=== PATIENT | male | born 1975 | race Caucasian/White ===

== ENCOUNTER 2017-11-03 00:02 | Emergency (ER) | payer MEDICARE, MEDICAID ==
[2017-11-03 00:58] LABS: #Lymphocytes 1.3 thou/uL (1.20-3.40); #Monocytes 0.4 thou/uL (0.11-0.59); #Neutrophils 4.1 thou/uL (1.40-6.50); %Basophils 0.1 % (0.0-1.0); %Eosinophils 0.1 % (0.0-10.0); %Lymphocytes 22.9 % (21.0-51.0); %Monocytes 7.3 % (0.0-10.0); %Neutrophils 69.7 % (42.0-75.0); Hemoglobin 13.5 g/dL (14.0-18.0); Mean Corpuscular HGB CONC 32.5 g/dL (32.0-36.0); Mean Corpuscular Volume 83.2 fl (80.0-94.0); Mean Platelet Volume 7.4 fL (7.4-10.4); Platelet Count 204 thou/uL (130-400); RBC Distribution Width 11.8 % (11.5-14.5); Red Blood Cell (RBC) Count 4.99 mill/uL (4.70-6.10); White Blood Cell (WBC) Count 5.8 thou/uL (4.8-10.8)
[2017-11-03 01:02] LABS: INR-International Normal Ratio 1.7; Prothrombin Time 20.7 SEC (12.0-14.7)
[2017-11-03 01:20] LABS: ALT (SGPT) 19 U/L (8-55); AST (SGOT) 15 U/L (5-34); Albumin 3.9 g/dL (3.5-5.0); Alkaline Phosphatase 60 U/L (40-150); Anion Gap 13 mmol/L (10-20); BUN (Urea Nitrogen) 21 mg/dL (8.9-20.6); Bilirubin, Total 0.3 mg/dL (0.2-1.2); Calc. Creatinine Clearance 0 mL/min (70-130); Calcium 9.5 mg/dL (7.8-10.44); Carbon Dioxide 25 mmol/L (22-29); Chloride 104 mmol/L (98-107); Estimated GFR-MDRD Greater than 90; Globulin 2.8 g/dL (2.4-3.5); Glucose 117 mg/dL (70-105); Iron 67 ug/dL (65-175); Iron Binding Capacity, Total 223 mcg/dL (261-462); Potassium 4.4 mmol/L (3.5-5.1); Protein, Total 6.7 g/dL (6.0-8.3); Sodium 138 mmol/L (136-145)
[2017-11-03 04:24] LABS: #Lymphocytes 2.1 thou/uL (1.20-3.40); #Monocytes 0.7 thou/uL (0.11-0.59); %Basophils 0.5 % (0.0-1.0); %Eosinophils 0.1 % (0.0-10.0); %Lymphocytes 26.8 % (21.0-51.0); %Monocytes 9.1 % (0.0-10.0); %Neutrophils 63.5 % (42.0-75.0); Hemoglobin 13.8 g/dL (14.0-18.0); Mean Corpuscular HGB CONC 32.4 g/dL (32.0-36.0); Mean Corpuscular Hemoglobin 27.4 pg (27.0-31.0); Mean Corpuscular Volume 84.4 fl (80.0-94.0); Platelet Count 202 thou/uL (130-400); RBC Distribution Width 11.8 % (11.5-14.5); Red Blood Cell (RBC) Count 5.04 mill/uL (4.70-6.10); White Blood Cell (WBC) Count 7.9 thou/uL (4.8-10.8)
--- NOTE | 2017-11-03 07:53 | RAD ---
TWO VIEWS CHEST: Date: 11-03-17 Comparison: 09-08-12 History: Upper respiratory infection, hemoptysis. FINDINGS: There is a dual lead AICD inserted via left sided approach. There is stable prominence of the cardiac silhouette. There is no pneumothorax or pleural fluid and no focal consolidation or alveolar edema. IMPRESSION: No acute findings. POS: [facility]
--- NOTE | 2017-11-22 17:49 | EKG ---
Test Reason : Blood Pressure : / mmHG Vent. Rate : 080 BPM Atrial Rate : 182 BPM P-R Int : 000 ms QRS Dur : 148 ms QT Int : 418 ms P-R-T Axes : 000 -56 072 degrees QTc Int : 482 ms Electronic ventricular pacemaker Confirmed by DANY BENOIT D.O. ([id number]), staff editor VERONICA YADAV ([id number] on 11/22/2017 5:47:53 PM Referred By: Confirmed By:DANY BENOIT D.O.
== END 2017-11-03 04:47 | disposition home or self-care (01) ==
LOC: ERS 00:02
DX: K92.2 Gastrointestinal hemorrhage, unspecified (principal); I48.91 Unspecified atrial fibrillation; I50.9 Heart failure, unspecified; I25.2 Old myocardial infarction; E05.90 Thyrotoxicosis, unspecified without thyrotoxic crisis or storm; F32.9 Major depressive disorder, single episode, unspecified; Z86.73 Personal history of transient ischemic attack (TIA), and cerebral infarction without residual deficits; Z87.891 Personal history of nicotine dependence
CPT/HCPCS: 36415; 71046; 80053; 82274; 82728; 83540; 83550; 85025; 85610; 85730; 86850; 86900; 86901; 93005

== ENCOUNTER 2017-11-12 10:22 | Day surgery (SDC) | payer MEDICARE, MEDICAID ==
[2017-11-12] MEDS ORDERED: Ondansetron HCl/PF 4 MG/2 ML Vial ONE (12:30)
--- NOTE | 2017-11-12 13:54 | OP ---
PREOPERATIVE DIAGNOSES: 1. Gastrointestinal bleeding. 2. Mild anemia. PROCEDURE IN DETAIL: After informed consent was obtained, the patient was placed in the left lateral decubitus position. Anesthesia was administered per the Anesthesia Department. Forward-viewing end oscope was inserted into the esophagus under direct visualization with ease and passed to the second portion of the duodenum with ease. Second portion of the duodenum and duodenal bulb were normal. Ra ndom biopsies were taken from the second portion of the duodenum. The pylorus, antrum, body, fundus, and cardia were normal except for some mildly gastritis in the body of the stomach. Retroflexion in the stomach was normal. The esophagus was normal throughout. ASSESSMENT: 1. Mild nonerosive gastritis - status post biopsy. 2. Otherwise normal esophagogastroduodenoscopy. RECOMMENDATIONS: 1. Await histopathology. 2. Proceed with colonoscopy. DESCRIPTION OF PROCEDURE: After informed consent was obtained, the patient was placed in the left la teral decubitus position. Anesthesia was administered per the Anesthesia Department. Forward-viewin g colonoscope was inserted into the rectum after perianal inspection and rectal exam were normal. It was passed to the cecum. The cecum, ileocecal valve, and appendiceal orifice were normal. The term inal ileum was normal. The ascending, transverse, descending, sigmoid and rectum were normal. Retro flexion in the rectum was normal other than diffuse diverticulosis coli. ASSESSMENT: 1. Diffuse diverticulosis coli. 2. Otherwise normal ileal colonoscopy. RECOMMENDATION: Daily fiber supplementation.
[2017-11-12] MEDS ORDERED: Propofol 200 MG/20 ML VIAL ONE (14:41)
== END 2017-11-12 13:00 | disposition home or self-care (01) ==
LOC: SDC 10:22
PROVIDERS: ATTEND Internal Medicine Gastroenterology
PROC: 0DB98ZX Excision of Duodenum, Via Natural or Artificial Opening Endoscopic, Diagnostic (ICD-10-PCS; principal; 2017-11-12)
PROC: 0DJD8ZZ Inspection of Lower Intestinal Tract, Via Natural or Artificial Opening Endoscopic (ICD-10-PCS; 2017-11-12)
DX: K29.50 Unspecified chronic gastritis without bleeding (principal); K57.30 Diverticulosis of large intestine without perforation or abscess without bleeding; K29.70 Gastritis, unspecified, without bleeding; D64.9 Anemia, unspecified; Z98.890 Other specified postprocedural states; Z95.2 Presence of prosthetic heart valve
CPT/HCPCS: 88305; 88312; J2405; J2704

== ENCOUNTER 2018-03-31 16:04 | Observation (INO) | payer MEDICARE, MEDICAID ==
[2018-03-31 16:34] LABS: #Eosinphils 0.2 thou/uL (0.0-0.7); #Lymphocytes 1.8 thou/uL (1.20-3.40); #Monocytes 0.5 thou/uL (0.11-0.59); #Neutrophils 2.4 thou/uL (1.40-6.50); %Basophils 0.5 % (0.0-1.0); %Eosinophils 4.3 % (0.0-10.0); %Lymphocytes 36.9 % (21.0-51.0); %Monocytes 10.5 % (0.0-10.0); %Neutrophils 47.7 % (42.0-75.0); Hemoglobin 14.7 g/dL (14.0-18.0); Mean Corpuscular HGB CONC 34.7 g/dL (32.0-36.0); Mean Corpuscular Hemoglobin 27.9 pg (27.0-31.0); Mean Corpuscular Volume 80.4 fl (80.0-94.0); Mean Platelet Volume 7.8 fL (7.4-10.4); Platelet Count 143 thou/uL (130-400); Red Blood Cell (RBC) Count 5.26 mill/uL (4.70-6.10); White Blood Cell (WBC) Count 4.9 thou/uL (4.8-10.8)
[2018-03-31 16:55] LABS: ALT (SGPT) 24 U/L (8-55); AST (SGOT) 20 U/L (5-34); Albumin 4.1 g/dL (3.5-5.0); Alkaline Phosphatase 67 U/L (40-150); Anion Gap 10 mmol/L (10-20); BUN (Urea Nitrogen) 13 mg/dL (8.9-20.6); Bilirubin, Total 0.4 mg/dL (0.2-1.2); CK (CPK) 79 U/L (30-200); Calc. Creatinine Clearance 0 mL/min (70-130); Calcium 9.5 mg/dL (7.8-10.44); Carbon Dioxide 24 mmol/L (22-29); Chloride 107 mmol/L (98-107); Estimated GFR-MDRD Greater than 90; Globulin 2.9 g/dL (2.4-3.5); Glucose 143 mg/dL (70-105); Sodium 137 mmol/L (136-145)
[2018-03-31 16:59] LABS: CKMB 0.9 ng/mL (0-6.6); Troponin I 0.014 ng/mL (< 0.028)
--- NOTE | 2018-03-31 16:59 | RAD ---
PORTABLE CHEST: HISTORY: Chest pain. COMPARISON: 01/18/2017 FINDINGS: The heart is mildly enlarged. AICD leads are unchanged. The lungs appear clear. No evidence of vas cular congestion. IMPRESSION: Mild cardiomegaly. No acute lung process. POS: [facility]
[2018-03-31] MEDS ORDERED: Nitroglycerin 2% Ointment 1 INCH/1 GM Packet ONE (18:12)
--- NOTE | 2018-03-31 18:50 | PDOC.FPRHP ---
- History of Present Illness Chief Complaint: chest pain History of Present Illness: Patient comes in with 3-4 days of intermittent chest pain. His chest pain is 0/ 10 at the current moment. He states for the last couple of days he gets sharp left side chest pain which does not radiate and sometimes feels like a pressure. The pain comes on randomly, nothing brings it on and nothing relieves it including rest or activity. The pain lasts for about 1-2 minutes and then resolves. Because the pain kept coming and going and his extensively history his wanted him to come and get checked out. He follows with Dr. Sood and Dr. Herbert. No recent fevers, chills, sweats, N/V/D. Mild fatigue and occassional orthostatic hypotension over the last 2-3 days. ED Course: EKG shows afib with paced rhythm Trop 0.014 Nitro patch No CP in the Ed - Allergies/Adverse Reactions Allergies Allergy/AdvReac Type Severity Reaction Status Date / Time No Known Drug Allergies Allergy Verified 03/31/18 20:12 - Home Medications Medication Instructions Recorded Confirmed Type Carvedilol [Coreg] 6.25 mg PO BID 12/24/13 03/31/18 History Lisinopril 2.5 mg PO DAILY 12/24/13 03/31/18 History Warfarin Sodium 5 mg PO DAILY 12/24/13 03/31/18 History Warfarin Sodium 2.5 mg PO ASDIR 09/27/16 03/31/18 History - History PMHx: Congenital heart defect, Aortic valve replacement at age of 6, dilated cardiomyopathy, CABG 4V, echo 2016 shows EF 40-45%, pacemaker, ICD, TIA PSHx: CABG, ablation FHx:DM in mother and brother Social: no smoking, alcohol, or drugs - Review of Systems General: denies: fever/chills, night sweats, fatigue Eyes: denies: eye pain, vision changes ENT: denies: nasal congestion Respiratory: denies: cough, shortness of breath, exercise intolerance Cardiovascular: reports: chest pain. denies: palpitation, orthopnea Gastrointestinal: denies: nausea, vomiting, diarrhea Genitourinary: denies: dysuria Skin: denies: rashes, jaundice Musculoskeletal: denies: pain, stiffness Neurological: denies: numbness, weakness Psychological: denies: anxiety, depression - Vital signs BP: 118/69 HR: 80 RR: 23 Tmax: 98.6 Pox: 97% on RA Wt: 62.6 - Physical Exam Constitutional: NAD, awake, alert and oriented HEENT: normocephalic and atraumatic, PERRLA, EOMI Neck: supple Heart: RRR, normal S1/S2, pulses present -Heart: 1/6 systolic murmur Lungs: CTAB, no respiratory distress Abdomen: soft, non-tender Musculoskeletal: normal structure, ROM grossly normal Neurological: no focal deficit, normal sensation Skin: no rash/lesions, capillary refill <2 seconds FMR H&P: Results - Labs Result Diagrams: 04/01/18 04:27 04/01/18 04:27 Lab results: WBC 4.9 thou/uL (4.8-10.8) 03/31/18 16:29 Hgb 14.7 g/dL (14.0-18.0) 03/31/18 16:29 Hct 42.3 % (42.0-52.0) 03/31/18 16:29 MCV 80.4 fl (80.0-94.0) 03/31/18 16:29 Plt Count 143 thou/uL (130-400) 03/31/18 16:29 Neutrophils % 47.7 % (42.0-75.0) 03/31/18 16:29 Sodium 137 mmol/L (136-145) 03/31/18 16:29 Potassium 4.0 mmol/L (3.5-5.1) 03/31/18 16:29 Chloride 107 mmol/L (98-107) 03/31/18 16:29 Carbon Dioxide 24 mmol/L (22-29) 03/31/18 16:29 BUN 13 mg/dL (8.9-20.6) 03/31/18 16:29 Creatinine 0.83 mg/dL (0.6-1.3) 03/31/18 16:29 Glucose 143 mg/dL (70-105) H 03/31/18 16:29 Calcium 9.5 mg/dL (7.8-10.44) 03/31/18 16:29 Total Bilirubin 0.4 mg/dL (0.2-1.2) 03/31/18 16:29 AST 20 U/L (5-34) 03/31/18 16:29 ALT 24 U/L (8-55) 03/31/18 16:29 Alkaline Phosphatase 67 U/L (40-150) 03/31/18 16:29 Creatine Kinase 79 U/L (30-200) 03/31/18 16:29 CK-MB (CK-2) 0.9 ng/mL (0-6.6) 03/31/18 16:29 Serum Total Protein 7.0 g/dL (6.0-8.3) 03/31/18 16:29 Albumin 4.1 g/dL (3.5-5.0) 03/31/18 16:29 FMR H&P: A/P - Problem List (1) Atypical angina Current Visit: No Status: Acute Code(s): I20.8 - OTHER FORMS OF ANGINA PECTORIS (2) Congenital heart defect Current Visit: No Status: Acute (3) Dilated cardiomyopathy Current Visit: No Status: Acute Code(s): I42.0 - DILATED CARDIOMYOPATHY (4) Status post ablation of atrial fibrillation Current Visit: No Status: Acute Code(s): Z98.89 - OTHER SPECIFIED POSTPROCEDURAL STATES * DO NOT USE *; Z86.79 - PERSONAL HISTORY OF OTHER DISEASES OF THE CIRCULATORY SYSTEM - Plan # Chest pain R/O - Hx of CABG, congenital heart defect, ablation - last stress test 2016 negative - last echo 2016 shows EF 40-45% - trop 0.014 will trend - stress test in AM - plan to consult Dr. Sood, his making department preparer in the AM # Hx of A fib - s/p ablation - EKG shows paced rhythm - On Warfarin, INR 1.9 # HTN - home lisinopril - hold coreg in light of likely stress test Dispo: < 48 hours pending stress test, cards recs FMR H&P: Upper Level - Pertinent history 42 yo M with PMH of CAD s/p CABG, chronic A fib s/p ablation and AICD placement , HTN presenting with chest pain. Pain is central in location, nonradiating in nature. Has some dizziness, diaphoresis and headache with these episodes, but no SOB. States this feels different from when he had his AR 6 years ago. Is followed closely by Dr. Herbert of EP. Declines ASA therapy, has been exclusively on warfarin now, he states. - Pertinent findings PE: T: 98.6 P: 80 BP: 118/69 RR: 23 97% on RA Gen: [place] male in NAD HEENT: PERRL, EOMI, MMM, no lymphadenopathy or thyromegaly CV: RRR no murmurs, distal pulses intact, sternotomy scar Pulm: CTAB, no wheezes or rhonchi Abd: soft, NT/ND, BS present, no masses or distention Ext: no cyanosis or edema MSK: YBARRA well, no joint or muscle pain or swelling Neuro: CN 2-12 intact, normal sensation Skin: no rashes or lesions Psych: A&O x3, appropriate in conversation - Plan Date/Time: 03/31/18 1850 42 yo M here with chest pain. 1) Typical chest pain: Obs on telemetry. Continue to trend troponins, check Mg , Phos, TSH. Last stress over 2 years ago based on [employer] records, though patient states he thinks he had one about a year ago. HEART score = 4, GRACIELA risk = 3. Continue statin, hold BB for stress in AM. Nitro prn. 2) A fib s/p ablation: Currently V-paced, continue home warfarin 3) CAD: s/p AR in 2011, continue ACEi, declines ASA. 4) HTN: continue lisinopril 5) Depression: not currently on any medication I, [Kole Queen], have evaluated this patient and agree with findings/plan as outlined by legal internship resident. Pertinent changes/additions are listed here. Attending Addendum - Attending Addendum Date/Time: 03/31/180 I personally evaluated the patient and discussed the management with Dr. James/ Bret. I agree with the History, Examination, Assessment and Plan documented above with any addition or exceptions noted below. Patient with history of previous AR s/p stenting, chronic Afib s/p ablation, and AICD in place presenting with a few days of on/off chest pain. Reports midsternal pain, pressure and sharp in nature, that occurs at random and lasts about 1 minute before spontaneous resolution. He has not have pain since starting Nitro patch in ED. Reports no association with food or exertion, but does associate pain with some shortness of breath, headache, dizziness, this morning. Reports not taking his coumadin as directed recently due to financial constraints, but his INR noted to be near therapeutic. Reports otherwise taking all medications as directed. Last saw his making department preparer 1 month ago. Patient exam overall benign. His EKG shows a Vpaced rhythm. Labs are not suggestive of cardiac ischemia. Patient Heart score is 4. He will be obs'ed overnight for atypical chest pain. Plan for stress testing in the AM and likely discuss case with his making department preparer due to his significant history.
[2018-03-31] MEDS ORDERED: Ondansetron ODT 4 MG TAB PO PRN (18:54)
[2018-03-31] MEDS ORDERED: Acetaminophen 325 MG TAB PO PRN (18:54)
[2018-03-31 19:27] LABS: INR-International Normal Ratio 1.9; Prothrombin Time 22.7 SEC (12.0-14.7)
[2018-03-31 20:11] VITALS: BMI 26.1
[2018-03-31 20:14] LABS: Troponin I 0.018 ng/mL (< 0.028)
[2018-03-31 20:56] LABS: Troponin I 0.013 ng/mL (< 0.028)
[2018-03-31] MEDS: Famotidine 20 MG TAB PO SCH (21:45)
[2018-03-31 23:05] LABS: Troponin I 0.016 ng/mL (< 0.028)
[2018-04-01 01:21] VITALS: TEMP 97.6
[2018-04-01 01:49] LABS: Troponin I 0.018 ng/mL (< 0.028)
[2018-04-01 05:11] LABS: #Eosinphils 0.2 thou/uL (0.0-0.7); #Lymphocytes 1.9 thou/uL (1.20-3.40); #Monocytes 0.5 thou/uL (0.11-0.59); #Neutrophils 2.4 thou/uL (1.40-6.50); %Basophils 0.3 % (0.0-1.0); %Eosinophils 4.4 % (0.0-10.0); %Lymphocytes 37.4 % (21.0-51.0); %Monocytes 9.9 % (0.0-10.0); %Neutrophils 48.1 % (42.0-75.0); Hemoglobin 13.1 g/dL (14.0-18.0); Mean Corpuscular HGB CONC 32.2 g/dL (32.0-36.0); Mean Corpuscular Hemoglobin 26.3 pg (27.0-31.0); Mean Corpuscular Volume 81.7 fl (80.0-94.0); Mean Platelet Volume 7.5 fL (7.4-10.4); Platelet Count 136 thou/uL (130-400); Red Blood Cell (RBC) Count 4.99 mill/uL (4.70-6.10)
[2018-04-01 05:23] LABS: Anion Gap 12 mmol/L (10-20); BUN (Urea Nitrogen) 14 mg/dL (8.9-20.6); Calc. Creatinine Clearance 111 mL/min (70-130); Calcium 9.5 mg/dL (7.8-10.44); Carbon Dioxide 25 mmol/L (22-29); Chloride 107 mmol/L (98-107); Estimated GFR-MDRD Greater than 90; Glucose 168 mg/dL (70-105); Potassium 3.9 mmol/L (3.5-5.1); Sodium 140 mmol/L (136-145)
[2018-04-01] MEDS ORDERED: Levothyroxine Sodium 75 MCG TAB PO SCH (06:00)
[2018-04-01 08:17] VITALS: BP 118/70
[2018-04-01] MEDS ORDERED: Lisinopril 2.5 MG TAB PO SCH (09:00)
[2018-04-01] MEDS: Famotidine 20 MG TAB PO SCH (09:00)
--- NOTE | 2018-04-01 13:47 | PDOC.FM ---
Addendum entered and electronically signed by Adina Muñoz DO 04/01/18 14:08: Another added problem: Elevated glucose without DM diagnosis - glucose 168 fasting - get A1c and f/u outpatient if stress negative Original Note: - Subjective Subjective: Patient is resting comfortably. He reports chest pain is resolved now but continues to come and go. It is substernal and does not radiate. Has hx of GERD, not currently on medication. He reports it does not feel like GERD sx. He is scheduled for stress today. NAEO. - Objective MAR Reviewed: Yes Vital Signs & Weight: Vital Signs (12 hours) Temp Pulse Resp BP BP Pulse Ox 04/01/18 09:00 80 04/01/18 08:00 97.6 F 80 18 04/01/18 07:40 97.7 F 81 12 118/70 97 04/01/18 04:30 80 18 105/55 L Weight Weight 60.6 kg Result Diagrams: 04/01/18 04:27 04/01/18 04:27 <Adina Muñoz - Last Filed: 04/01/18 13:49> - Objective Vital Signs & Weight: Vital Signs (12 hours) Pulse 04/01/18 09:00 80 Weight Weight 60.6 kg Result Diagrams: 04/01/18 04:27 04/01/18 04:27 <Sherin Parikh - Last Filed: 04/01/18 20:53> Phys Exam - Physical Examination Constitutional: NAD Respiratory: no wheezing, no rales, clear to auscultation bilateral Cardiovascular: RRR, no significant murmur sternotomy scar, no ttp Gastrointestinal: soft, non-tender, no distention Musculoskeletal: pulses present Neurological: moves all 4 limbs Psychiatric: normal affect, A&O x 3 <Adina Muñoz - Last Filed: 04/01/18 13:49> Dx/Plan (1) Atypical angina Code(s): I20.8 - OTHER FORMS OF ANGINA PECTORIS Status: Acute (2) Congenital heart defect Status: Acute (3) Dilated cardiomyopathy Code(s): I42.0 - DILATED CARDIOMYOPATHY Status: Acute (4) Hypothyroidism Code(s): E03.9 - HYPOTHYROIDISM, UNSPECIFIED Status: Acute (5) Status post ablation of atrial fibrillation Code(s): Z98.89 - OTHER SPECIFIED POSTPROCEDURAL STATES * DO NOT USE *; Z86.79 - PERSONAL HISTORY OF OTHER DISEASES OF THE CIRCULATORY SYSTEM Status: Acute - Plan Plan: Chest pain R/O - Hx of CABG, congenital heart defect, ablation - last stress test 2015 negative - trop neg x3 - stress test in AM - plan to consult Dr. Sood, his ingot car operator in the AM Hx of A fib - s/p ablation and pacemaker - EKG shows paced rhythm - On Warfarin, INR 1.9 Systolic CHF - no signs/sx of acute exacerbation - most recent records from echo done in 01/2018 with EF 40-45% - continue Coreg - follows with Dr. Sood, ingot car operator - continue ACEI # HTN - home lisinopril - hold coreg in light of likely stress test GERD - not currently on medications due to cost - will try protonix to see if insurance will cover Hx of Congenital Heart disease s/p pig valve replacement - age 6 - no complications since then Dispo: < 48 hours pending stress test <Adina Muñoz - Last Filed: 04/01/18 13:49> Attending Addendum - Attending Addendum Date/Time: 04/01/182052 I personally evaluated the patient and discussed the management with Dr. Muñoz. I agree with the History, Examination, Assessment and Plan documented above with any addition or exceptions noted below. The patient presented with chest pain but it is now resolved. He does have a history of GERD and is not currently taking treatment. Will get stress test today and start PPI. <Sherin Parikh - Last Filed: 04/01/18 20:53>
--- NOTE | 2018-04-01 14:01 | NM ---
RADIONUCLIDE STRESS AND REST MYOCARDIAL PERFUSION SCAN WITH CT ATTENUATION CORRECTION AND SPECT IMAGI NG WITH LEFT VENTRICULAR WALL MOTION EVALUATION AND EJECTION FRACTION: HISTORY: Chest pain. FINDINGS: Lexiscan protocol was used. There is heterogeneous uptake of radiotracer throughout the left ventricu lar myocardium. No focal perfusion defect or reversibility. QGS analysis of gated SPECT images shows no focal wall motion abnormalities. Ejection fraction is calculated at 56%. IMPRESSION: 1. Normal myocardial perfusion scan. 2. Normal LVEF. POS: [facility]
[2018-04-01] MEDS ORDERED: Regadenoson 0.4 MG/5 ML SYRINGE ONE (14:13)
[2018-04-01 14:45] LABS: Hemoglobin A1c 5.3 % (4.0-6.0)
[2018-04-01] MEDS ORDERED: Warfarin Sodium 7.5 MG TAB PO SCH (17:00)
[2018-04-02] MEDS ORDERED: Warfarin Sodium 5 MG TAB PO SCH (17:00)
== END 2018-04-01 14:56 | disposition home or self-care (01) ==
LOC: ERS 16:04 → 2SW 18:59
PROVIDERS: ADMIT Student in an Organized Health Care Education/Training Program; ATTEND Student in an Organized Health Care Education/Training Program
DX: I20.8 Other forms of angina pectoris (principal); I42.0 Dilated cardiomyopathy; E03.9 Hypothyroidism, unspecified; K21.9 Gastro-esophageal reflux disease without esophagitis; Z98.890 Other specified postprocedural states; Z86.79 Personal history of other diseases of the circulatory system; Z79.01 Long term (current) use of anticoagulants; Z79.899 Other long term (current) drug therapy
CPT/HCPCS: 71045; 78452; 80048; 82550; 82553; 83036; 84484 ×3; 85025; 85610; 93005; 93017; 94760; 99285; A9500; G0378; 36415; 80053; 84443; J2785

== ENCOUNTER 2018-09-02 22:04 | Emergency (ER) | payer MEDICARE, MEDICAID | END 2018-09-03 00:11 | disposition left against medical advice (07) | LOC: ERS 22:04 | DX: Z53.21 Procedure and treatment not carried out due to patient leaving prior to being seen by health care provider (principal) ==